=== PATIENT | female | born 1990 | race Hispanic/Latino ===

== ENCOUNTER 2018-08-04 21:50 | Outpatient (CLI) | payer OTHER ==
[2018-08-04] MEDS ORDERED: LACTATED RINGERS 500 ML IV ONE (22:32)
[2018-08-04 22:56] LABS: Bacteria,Urine 4+ /HPF (Negative); Bilirubin,Urine NEG (Negative); Blood,Urine NEG (Negative); Color,Urine Yellow (Yellow); Protein,Urine <15 mg/dL mg/dL (Negative); Urobilinogen,Urine < 2.0 mg/dL (<2.0)
[2018-08-05 00:12] VITALS: BP 110/71
--- NOTE | 2018-08-05 01:06 | Ultrasound Report ---
FINAL REPORT EXAM: US OB LIMITED HISTORY: leaking COMPARISON: None available. TECHNIQUE: Several real-time grayscale and color Doppler images were obtained. Limited exam performe d for evaluation of GORDO presentation. Single live IUP demonstrated. heart rate 149 beats per minute. presentation cephalic. Cer vix is closed and measures 3.4 centimeters in length. Two pockets of amniotic fluid demonstrated ilya uring 4.1 no 5.0 centimeters each. This is within normal limits. IMPRESSION: Cervix is closed. Normal amount of amniotic fluid. presentation cephalic.
== END 2018-08-05 00:16 | disposition home or self-care (01) ==
LOC: TRG 21:50
PROVIDERS: ATTEND Obstetrics & Gynecology
DX: O47.02 False labor before 37 completed weeks of gestation, second trimester (principal); O99.512 Diseases of the respiratory system complicating pregnancy, second trimester; J45.909 Unspecified asthma, uncomplicated; Z3A.19 19 weeks gestation of pregnancy
CPT/HCPCS: 76815; 81001; J7120